=== PATIENT | male | born 2000 | race Caucasian/White ===

== ENCOUNTER 2020-10-31 01:18 | Emergency (ER) | payer OTHER ==
[2020-10-31 01:38] VITALS: BP 125/72; PULSE 98; TEMP 98.6; BMI 22.5
[2020-10-31 02:26] LABS: PH,URINE 7.5 (5.0-8.0); URINE APPEARANCE CLEAR; URINE BILIRUBIN NEGATIVE (NEGATIVE); URINE COLOR YELLOW; URINE GLUCOSE (UA) NEGATIVE (NEGATIVE); URINE KETONE NEGATIVE (NEGATIVE); URINE LEUK ESTERASE NEGATIVE (NEGATIVE); URINE NITRITE NEGATIVE (NEGATIVE); URINE PROTEIN NEGATIVE (NEGATIVE); URINE UROBILINOGEN 0.2 mg/dL (0.2-1.0)
== END 2020-10-31 02:53 | disposition home or self-care (01) ==
LOC: JER 01:18
DX: I87.9 Disorder of vein, unspecified (principal)
CPT/HCPCS: 36415; 81003; 87491; 87591; 99284-25

== ENCOUNTER 2023-07-02 00:32 | Emergency (ER) | payer OTHER ==
[2023-07-02 00:45] VITALS: BP 106/69; PULSE 98; RESP 18; TEMP 98.4; BMI 20.3
[2023-07-02] MEDS ORDERED: KETOROLAC TROMETHAMINE 30 MG/1 ML VIAL IM ONE (01:41)
[2023-07-02] MEDS ORDERED: KETOROLAC TROMETHAMINE 30 MG/1 ML VIAL ONE (01:46)
== END 2023-07-02 02:30 | disposition home or self-care (01) ==
LOC: JER 00:32
PROC: 3E0233Z Introduction of Anti-inflammatory into Muscle, Percutaneous Approach (ICD-10-PCS; principal; 2023-07-02)
PROC: 2W3CX1Z Immobilization of Right Lower Arm using Splint (ICD-10-PCS; 2023-07-02)
DX: S62.306A Unspecified fracture of fifth metacarpal bone, right hand, initial encounter for closed fracture (principal); M79.641 Pain in right hand; W22.8XXA Striking against or struck by other objects, initial encounter
CPT/HCPCS: 73110-TC-RT-FY; 73130-TC-RT-FY; 99284-25